=== PATIENT | male | born 1945 ===

== ENCOUNTER 2021-02-19 17:08 | Inpatient (IN) ==
[2021-02-19] MEDS ORDERED: Ondansetron ODT 4 MG TAB.RAPDIS SL PRN (20:24)
[2021-02-20] MEDS ORDERED: Ondansetron ODT 4 MG TAB.RAPDIS SL SCH
[2021-02-20 06:56] LABS: Basophils % 0.1 %; Eosinophils # 0.1 K/mcL (0.0-0.6); Eosinophils % 0.8 %; Hematocrit 39.2 % (37.5-50.1); Immature Granulocytes % 0.3 % (0-4); Lymphocytes # 1.2 K/mcL (0.6-4.6); Mean Corpuscular HGB Conc 33.2 g/dL (31.6-35.5); Mean Corpuscular Hemoglobin 31.9 pg (28.0-33.3); Mean Corpuscular Volume 96.3 fL (83.0-100.0); Mean Platelet Volume 10.6 fL (9.4-12.4); Monocytes % 26.3 %; Neutrophils # 4.3 K/mcL (1.6-8.9); Platelet Count 186 K/mcL (140-400); Red Blood Count 4.07 M/mcL (4.19-5.50); Segmented Neutrophils % 56.5 %; White Blood Count 7.6 K/mcL (4.3-11.1)
[2021-02-20 07:21] LABS: BUN/Creatinine Ratio 16 (6-26); Blood Urea Nitrogen 18 mg/dL (8-23); Calcium 8.8 mg/dL (8.6-10.3); Carbon Dioxide 30 mEq/L (23-29); Chloride 104 mEq/L (98-107); Glucose 108 mg/dL (70-105); Osmolality,Calculated 290 (280-300); Potassium 4.2 mEq/L (3.5-5.1); Sodium 139 mEq/L (136-145); eGFR For African Americans > 60 (> 60); eGFR For Non-African Americans > 60 (> 60)
[2021-02-20] MEDS: Aspirin Enteric Coated 81 MG Tablet PO SCH (09:18)
[2021-02-20] MEDS: lisinopriL 10 MG TABLET PO SCH (09:18)
[2021-02-20 11:06] LABS: Platelet Estimate Normal (Normal)
[2021-02-20] MEDS: Melatonin 3 MG TABLET PO PRN (19:56)
[2021-02-21] MEDS: *HR* Enoxaparin 40 MG/0.4 ML SYRINGE SQ SCH ×2 (05:51→09:03)
[2021-02-21] MEDS: lisinopriL 10 MG TABLET PO SCH (08:41)
[2021-02-21] MEDS: Aspirin Enteric Coated 81 MG Tablet PO SCH (08:42)
[2021-02-21] MEDS: Melatonin 3 MG TABLET PO PRN (19:44)
[2021-02-21] MEDS ORDERED: Melatonin 3 MG TABLET PO ONE (22:16)
[2021-02-22] MEDS: lisinopriL 10 MG TABLET PO SCH (09:15)
[2021-02-22] MEDS: Aspirin Enteric Coated 81 MG Tablet PO SCH (09:15)
[2021-02-22] MEDS: Melatonin 3 MG TABLET PO PRN (22:33)
[2021-02-23] MEDS: lisinopriL 10 MG TABLET PO SCH (08:46)
[2021-02-23] MEDS: Aspirin Enteric Coated 81 MG Tablet PO SCH (08:46)
[2021-02-23] MEDS: Melatonin 3 MG TABLET PO PRN (21:52)
[2021-02-23] MEDS ORDERED: Melatonin 3 MG TABLET PO ONE (23:48)
[2021-02-24 07:44] VITALS: BP 129/71; PULSE 68; RESP 18; TEMP 98.3; O2SAT 97
[2021-02-24] MEDS: Aspirin Enteric Coated 81 MG Tablet PO SCH (07:55)
[2021-02-24] MEDS: lisinopriL 10 MG TABLET PO SCH (07:55)
== END 2021-02-24 10:30 | disposition home health service (06) | DRG 65 ==
LOC: INPPIK 19:12
PROVIDERS: ADMIT Family Medicine; ATTEND Family Medicine